=== PATIENT | female | born 1975 | race African-American/Black ===

== ENCOUNTER 2022-07-22 16:32 | Inpatient (IN) | payer SELFPAY ==
[~2022-07-22] VITALS: Ht 172.7 cm; Wt 142.0 kg
[2022-07-22 17:33] LABS: BASOPHILS % 0.3 % (0.0-2.0); EOSINOPHILS % 0.8 % (0.0-5.0); HEMATOCRIT. 29.7 % (36.0-48.0); HEMOGLOBIN. 9.5 g/dL (12.0-16.0); LYMPHOCYTES % 37.2 % (20.0-50.0); MEAN CORPUSCULAR HEMOGLOBIN 22.6 pg (28.0-32.0); MEAN PLATELET VOLUME 6.9 fl (7.4-10.4); MONOCYTES % 5.5 % (2.0-8.0); NEUTROPHILS % 56.2 % (40.0-76.0); PLATELET 328 x1000/uL (130-400); RED BLOOD CELL COUNT 4.19 mill/uL (4.2-5.4); RED CELL DISTRIBUTION WIDTH 20.5 % (11.6-14.6)
[2022-07-22] MEDS ORDERED: IOHEXOL-350 100 ML BOTTLE ONE (17:34)
[2022-07-22 17:39] LABS: CHLORIDE 104 mEq/L (98-107)
[2022-07-22 17:40] LABS: INR 1.1; PROTHROMBIN TIME 11.4 sec (9.6-11.0)
[2022-07-22 17:57] LABS: ETHANOL BLOOD < 10 mg/dL
[2022-07-22] MEDS ORDERED: LEVETIRACETAM 500MG PREMIX 100 ML IV ONE (18:15)
[2022-07-22] MEDS: LEVETIRACETAM 1000MG PREMIX 100 ML IV SCH ×3 (18:31→18:36)
[2022-07-22] MEDS ORDERED: ONDANSETRON HCL 4MG/2ML INJ IV PRN (21:15)
[2022-07-22] MEDS ORDERED: CLONIDINE 0.1MG TABLET PO PRN (21:15)
[2022-07-22] MEDS ORDERED: ACETAMINOPHEN 325MG TABLET PO PRN ×2 (21:15)
[2022-07-22] MEDS ORDERED: MAGNESIUM/ALUMINUM HYDROXIDE/SIMETHICONE 30ML UDC PO PRN (21:15)
[2022-07-22] MEDS ORDERED: DOCUSATE SODIUM 100MG CAPSULE PO PRN (21:15)
[2022-07-22] MEDS ORDERED: IPRATROPIUM/ALBUTEROL 0.5-3(2.5)MG/3ML NEB HHN PRN (21:15)
[2022-07-22] MEDS ORDERED: NICARDIPINE 50 MG in SODIUM CHLORIDE 0.9% 230 ML IV PRN (21:30)
[2022-07-22 21:47] LABS: TOTAL IRON BINDING CAPACITY 450 ug/dL (250-450)
[2022-07-22 22:30] VITALS: BP 107/54
[2022-07-22] MEDS: SODIUM CHLORIDE 0.9% 1,000 ML IV SCH (22:51)
[2022-07-23] VITALS (7 sets, daily range): BP systolic 115–158; BP diastolic 60–97
[2022-07-23 00:24] LABS: CLARITY URINE CLOUDY (CLEAR); COLOR URINE YELLOW (YELLOW); KETONES URINE NEGATIVE (NEGATIVE); LEUKOCYTE ESTERASE URINE NEGATIVE (NEGATIVE); NITRITE URINE NEGATIVE (NEGATIVE); OCCULT BLOOD URINE NEGATIVE (NEGATIVE); PH URINE 5.5 (4.5-8.0); PROTEIN URINE TRACE (NEGATIVE); SPECIFIC GRAVITY URINE 1.079 (1.005-1.030); UROBILINOGEN URINE 0.2 E.U./dL (0.2-1.0)
[2022-07-23 00:35] LABS: *AMPHETAMINES SCREEN URINE NEGATIVE (NEGATIVE); *BARBITURATES SCREEN URINE NEGATIVE (NEGATIVE); *BENZODIAZEPINES SCREEN URINE NEGATIVE (NEGATIVE); METHADONE URINE SCREEN NEGATIVE (NEGATIVE); OPIATES URINE SCREEN NEGATIVE (NEGATIVE)
[2022-07-23 00:40] LABS: *COCAINE SCREEN URINE PRESUMTIVE POSITIVE (NEGATIVE); CANNABINOID URINE SCREEN PRESUMTIVE POSITIVE (NEGATIVE); PHENCYCLIDINE URINE SCREEN PRESUMTIVE POSITIVE (NEGATIVE)
[2022-07-23 02:49] LABS: CREATINE KINASE 792 IU/L (26-192)
[2022-07-23 08:02] LABS: BASOPHILS % 0.3 % (0.0-2.0); EOSINOPHILS % 0.8 % (0.0-5.0); HEMATOCRIT. 28.8 % (36.0-48.0); HEMOGLOBIN. 9.1 g/dL (12.0-16.0); LYMPHOCYTES % 35.7 % (20.0-50.0); MEAN CORPUSCULAR HEMOGLOBIN 22.5 pg (28.0-32.0); MEAN CORPUSCULAR VOLUME 71.2 fL (81.0-99.0); MEAN PLATELET VOLUME 7.2 fl (7.4-10.4); MONOCYTES % 6.9 % (2.0-8.0); NEUTROPHILS % 56.3 % (40.0-76.0); PLATELET 303 x1000/uL (130-400); RED BLOOD CELL COUNT 4.05 mill/uL (4.2-5.4); RED CELL DISTRIBUTION WIDTH 20.1 % (11.6-14.6)
[2022-07-23 08:37] LABS: CHLORIDE 106 mEq/L (98-107)
[2022-07-23] MEDS: SODIUM CHLORIDE 0.9% 1,000 ML IV SCH (08:41)
[2022-07-23 08:56] LABS: CREATINE KINASE 770 IU/L (26-192); HDL CHOLESTEROL 51 mg/dL (40-59); LDL CHOLESTEROL 123 mg/dL (5-100); T4 FREE 0.88 ng/dL (0.76-1.46); TOTAL IRON BINDING CAPACITY 428 ug/dL (250-450)
[2022-07-23] MEDS ORDERED: PANTOPRAZOLE SODIUM 40 MG/VIAL IV SCH (09:00)
[2022-07-23 09:38] LABS: VITAMIN B12 SERUM 459 pg/mL (211-911)
[2022-07-23] MEDS ORDERED: IPRATROPIUM BROMIDE (0.02%) 0.5MG/2.5ML NEB HHN PRN (16:15)
[2022-07-23] MEDS ORDERED: ALBUTEROL (0.083%) 2.5MG/3ML NEB HHN PRN (16:15)
[2022-07-23] MEDS ORDERED: FAMOTIDINE 20MG TABLET PO SCH (21:00)
[2022-07-23] MEDS ORDERED: LEVETIRACETAM 500MG TABLET PO SCH (21:00)
== END 2022-07-23 18:00 | disposition home or self-care (01) | DRG 58 ==
LOC: ER 16:32 → 5EST 19:30 → EDBEDREQSVC 19:45 → EDBEDREQ 19:45 → EDBEDREQTM 19:45
PROVIDERS: ADMIT Internal Medicine; ATTEND Internal Medicine
DX: D32.0 Benign neoplasm of cerebral meninges (principal); I61.9 Nontraumatic intracerebral hemorrhage, unspecified; G93.40 Encephalopathy, unspecified; D50.9 Iron deficiency anemia, unspecified; E11.9 Type 2 diabetes mellitus without complications; E66.01 Morbid (severe) obesity due to excess calories; F19.10 Other psychoactive substance abuse, uncomplicated; F17.200 Nicotine dependence, unspecified, uncomplicated; F32.A Depression, unspecified; F16.90 Hallucinogen use, unspecified, uncomplicated; Z68.42 Body mass index [BMI] 45.0-49.9, adult; Z85.841 Personal history of malignant neoplasm of brain
CPT/HCPCS: 36415; 70496; 70498; 70544; 70553; 71045; 80053; 80061; 80305; 80320; 81003; 82542; 82550; 82607; 82728; 82962; 83036; 83540; 83550; 84439; 84443; 84481; 84484; 85025; 86850; 86900; 93005; 93306; 93970; 99291; C9113; J1953; J2405; Q9967; G0480

== ENCOUNTER 2023-07-21 18:05 | Emergency (ER) | payer MEDICAID ==
[~2023-07-21] VITALS: Ht 172.7 cm; Wt 150.0 kg
[2023-07-21 18:17] VITALS: BP 116/70; PULSE 100; RESP 16; TEMP 98.3; O2SAT 97
== END 2023-07-22 04:07 | disposition left against medical advice (07) ==
LOC: ER 18:05
DX: R42 Dizziness and giddiness (principal); Z53.21 Procedure and treatment not carried out due to patient leaving prior to being seen by health care provider
CPT/HCPCS: 99281; Z7610